=== PATIENT | female | born 1995 | race Hispanic/Latino ===

== ENCOUNTER 2020-07-15 21:58 | Emergency (ER) | payer OTHER ==
[2020-07-15] MEDS ORDERED: ONDANSETRON 4 MG/2 ML VIAL ONE (22:49)
[2020-07-15] MEDS ORDERED: FAMOTIDINE 20 MG/2 ML VIAL IV ONE (22:49)
[2020-07-15] MEDS ORDERED: NA CHLORIDE 0.9% 1,000 ML ONE (22:49)
[2020-07-15 23:05] LABS: Urine Blood NEGATIVE (NEG); Urine Glucose NEGATIVE (NEG); Urine Protein NEGATIVE (NEG); Urine pH 8.5 (5.0-7.0)
[2020-07-15 23:10] LABS: Absolute Lymphocytes (CBC) 1.3 K/uL (0.7-4.9); Hematocrit 38.8 % (36.0-45.0); Lymphocytes % 17.5 % (15.3-44.8); MPV 9.9 fL (7.6-11.3); RBC Red Blood Cell Count 4.38 M/uL (3.86-4.86)
[2020-07-15 23:28] LABS: ALT/SGPT 19 U/L (12-78); AST/SGOT 14 U/L (15-37); Albumin 4.1 g/dL (3.4-5.0); Alkaline Phosphatase 66 U/L (45-117); BUN Blood Urea Nitrogen 8 mg/dL (7-18); Bicarbonate 29 mmol/L (21-32); Bilirubin Direct 0.1 mg/dL (0-0.2); Bilirubin Total 0.5 mg/dL (0.2-1.0); Glucose Level 109 mg/dL (74-106); Lipase 55 U/L (73-393); Potassium 3.7 mmol/L (3.5-5.1); Sodium Level 141 mmol/L (136-145)
--- NOTE | 2020-07-16 00:10 | ER ---
Nurse's Notes [facility] Name: Fernando Castillo Age: 24 yrs Sex: Female : 1995 Arrival Date: 07/15/2020 Time: 21:59 Bed 20 Private MD: Diagnosis: Nausea;Diarrhea;Dehydration Presentation: 07/15 22:14 Chief complaint: Patient states: today at approx 1500 she started having a headache bb with nausea, chills, and diarrhea x 4, denies vomiting and abdominal pain. Coronavirus screen: chills, headache, nausea, Client presents with at least one sign or symptom that may indicate coronavirus-19. Standard/surgical mask placed on the client. Ebola Screen: No symptoms or risks identified at this time. Initial Sepsis Screen: Does the patient meet any 2 criteria? No. Patient's initial sepsis screen is negative. Does the patient have a suspected source of infection? No. Patient's initial sepsis screen is negative. Risk Assessment: Do you want to hurt yourself or someone else? Patient reports no desire to harm self or others. Onset of symptoms was July 15, 2020. 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 - Social history:: Smoking status: Patient denies any tobacco usage or history of. Patient uses alcohol, but reports only rare drinking. Patient/guardian denies using street drugs. Screenin:57 Abuse screen: Denies threats or abuse. Denies injuries from another. Nutritional wh screening: No deficits noted. Tuberculosis screening: No symptoms or risk factors identified. Fall Risk None identified. Assessment: 22:30 General: Appears in no apparent distress. Behavior is calm, cooperative, appropriate wh for age. Pain: Complains of pain in headache. Neuro: Level of Consciousness is awake, alert, obeys commands, Oriented to person, place, time, situation, Appropriate for age. Cardiovascular: Heart tones S1 S2. Respiratory: Airway is patent Respiratory effort is even, unlabored, Respiratory pattern is regular, symmetrical. GI: Abdomen is flat, non-distended, Bowel sounds present X 4 quads. Abd is soft and non tender X 4 quads. Reports diarrhea, nausea. : No signs and/or symptoms were reported regarding the genitourinary system. EENT: No signs and/or symptoms were reported regarding the EENT system. Derm: Skin is intact, is healthy with good turgor, Skin is pink, warm \T\ dry. normal. Musculoskeletal: Circulation, motion, and sensation intact. 07/16 00:00 Reassessment: Patient appears in no apparent distress at this time. No changes from previously documented assessment. Patient and/or family updated on plan of care and expected duration. Pain level reassessed. Patient is alert, oriented x 3, equal unlabored respirations, skin warm/dry/pink. 00:15 Reassessment: Pt refusing additional meds and imaging, requesting to go AMA, Notified Provider. Vital Signs: 07/15 22:14 BP 120 / 76; Pulse 71; Resp 14 S; Temp 98.8(O); Pulse Ox 96% on R/A; Weight 55.34 kg bb (R); Height 5 ft. 2 in. (157.48 cm) (R); Pain 3/10; 22:57 BP 106 / 95; Pulse 69; Resp 18; Pulse Ox 97% on R/A; 07/16 00:23 BP 118 / 76; Pulse 67; Resp 18; Pulse Ox 97% on R/A; 07/15 22:14 Body Mass Index 22.31 (55.34 kg, 157.48 cm) ED Course: 07/15 21:59 Patient arrived in ED. cl3 22:09 Oscar Mcmanus MD is Attending Physician. 7 22:17 Triage completed. 22:17 Arm band placed on Patient placed in an exam room, on a stretcher, on pulse oximetry. 22:19 Sherry Christina is Primary Nurse. 22:45 Inserted saline lock: 20 gauge in right antecubital area, using aseptic technique. Blood collected. 22:57 Patient has correct armband on for positive identification. Placed in gown. Bed in low wh position. Call light in reach. Side rails up X 1. Pulse ox on. NIBP on. 07/16 00:22 No provider procedures requiring assistance completed. IV discontinued, intact, bleeding controlled, No redness/swelling at site. Administered Medications: 07/15 22:49 Drug: NS 0.9% 1000 ml Route: IV; Rate: 1000 ml; Site: right antecubital; 23:52 Follow up: Response: No adverse reaction; IV Status: Completed infusion 22:51 Drug: Pepcid 20 mg Route: IVP; Site: right antecubital; 23:51 Follow up: Response: No adverse reaction 22:53 Drug: Zofran (Ondansetron) 4 mg Route: IVP; Site: right antecubital; 23:51 Follow up: Response: No adverse reaction; Nausea is decreased 07/16 00:16 Not Given (Patient Refused): Phenergan 12.5 mg IVP once 00:16 Not Given (Patient Refused): NS 0.9% 1000 ml IV at 1000 ml once Outcome: 00:10 Discharge ordered by mh7 00:23 AMA AMA form signed : Condition: stable 00:23 Instructed on follow up and referral plans. medication usage, POC Demonstrated understanding of follow-up care, medications, Prescriptions given X 2. 00:24 Patient left the ED. Signatures: Cassidy Plaza RN RN Sherry Anders Amina Prado cl3 Oscar Mcmanus MD MD mh7 Corrections: (The following items were deleted from the chart) 07/15 22:57 22:30 Pain: Complains of pain in epigastric area and headache [facility] 22:57 22:30 GI: Abdomen is flat, non-distended, Bowel sounds present X 4 quads. Abd is soft wh and non tender X 4 quads. Reports upper abdominal pain, diarrhea, nausea, wh
--- NOTE | 2020-07-16 00:11 | EDPHYS ---
Physician Documentation [facility] Name: Fernando Castillo Age: 24 yrs Sex: Female : 1995 Arrival Date: 07/15/2020 Time: 21:59 Bed 20 Private MD: ED Physician Oscar Mcmanus HPI: 07/15 22:39 This 24 yrs old Female presents to ER via Ambulatory with complaints of mh7 Nausea/Vomiting/Diarrhea, Headache. 22:39 Onset: The symptoms/episode began/occurred today. Possible causes: bad food exposure, mh7 possibly bad home food. The symptoms are aggravated by nothing. The symptoms are alleviated by nothing. Associated signs and symptoms: Pertinent negatives: abdominal pain, anorexia, belching, constipation, dysuria, fever, flatulence, GI bleeding, hematuria, vaginal discharge, vomiting. Associated signs and symptoms: Pertinent positives: diarrhea, nausea, Headache, Pertinent negatives:. Severity of symptoms: At their worst the symptoms were moderate today, in the emergency department the symptoms are unchanged. 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 - Social history:: Smoking status: Patient denies any tobacco usage or history of. Patient uses alcohol, but reports only rare drinking. Patient/guardian denies using street drugs. ROS: 22:39 Constitutional: Negative for fever, chills, and weight loss, Eyes: Negative for injury, mh7 pain, redness, and discharge, ENT: Negative for injury, pain, and discharge, Neck: Negative for injury, pain, and swelling, Cardiovascular: Negative for chest pain, palpitations, and edema, Respiratory: Negative for shortness of breath, cough, wheezing, and pleuritic chest pain, Back: Negative for injury and pain, : Negative for injury, bleeding, discharge, and swelling, MS/Extremity: Negative for injury and deformity, Skin: Negative for injury, rash, and discoloration, Psych: Negative for depression, anxiety, suicide ideation, homicidal ideation, and hallucinations, Allergy/Immunology: Negative for hives, rash, and allergies, Endocrine: Negative for neck swelling, polydipsia, polyuria, polyphagia, and marked weight changes, Hematologic/Lymphatic: Negative for swollen nodes, abnormal bleeding, and unusual bruising. Exam: 22:39 Constitutional: This is a well developed, well nourished patient who is awake, alert, mh7 and in no acute distress. Head/Face: Normocephalic, atraumatic. Eyes: Pupils equal round and reactive to light, extra-ocular motions intact. Lids and lashes normal. Conjunctiva and sclera are non-icteric and not injected. Cornea within normal limits. Periorbital areas with no swelling, redness, or edema. Neck: Trachea midline, no thyromegaly or masses palpated, and no cervical lymphadenopathy. Supple, full range of motion without nuchal rigidity, or vertebral point tenderness. No Meningismus. Chest/axilla: Normal chest wall appearance and motion. Nontender with no deformity. No lesions are appreciated. Cardiovascular: Regular rate and rhythm with a normal S1 and S2. No gallops, murmurs, or rubs. Normal PMI, no JVD. No pulse deficits. Respiratory: Lungs have equal breath sounds bilaterally, clear to auscultation and percussion. No rales, rhonchi or wheezes noted. No increased work of breathing, no retractions or nasal flaring. Abdomen/GI: Soft, non-tender, with normal bowel sounds. No distension or tympany. No guarding or rebound. No evidence of tenderness throughout. Back: No spinal tenderness. No costovertebral tenderness. Full range of motion. Skin: Warm, dry with normal turgor. Normal color with no rashes, no lesions, and no evidence of cellulitis. MS/ Extremity: Pulses equal, no cyanosis. Neurovascular intact. Full, normal range of motion. Neuro: Awake and alert, GCS 15, oriented to person, place, time, and situation. Cranial nerves II-XII grossly intact. Motor strength 5/5 in all extremities. Sensory grossly intact. Cerebellar exam normal. Normal gait. Psych: Awake, alert, with orientation to person, place and time. Behavior, mood, and affect are within normal limits. Vital Signs: 22:14 BP 120 / 76; Pulse 71; Resp 14 S; Temp 98.8(O); Pulse Ox 96% on R/A; Weight 55.34 kg bb (R); Height 5 ft. 2 in. (157.48 cm) (R); Pain 3/10; 22:57 BP 106 / 95; Pulse 69; Resp 18; Pulse Ox 97% on R/A; wh 07/16 00:23 BP 118 / 76; Pulse 67; Resp 18; Pulse Ox 97% on R/A; 07/15 22:14 Body Mass Index 22.31 (55.34 kg, 157.48 cm) bb MDM: 07/15 22:30 Patient medically screened. [facility] 07/16 00:07 Differential diagnosis: gastritis, pancreatitis, viral gastroenteritis, mh7 gastroenteritis, dehydration. Data reviewed: vital signs, nurses notes, lab test result(s), CBC, electrolytes, urinalysis, UPT:. Data interpreted: Pulse oximetry: on room air is 97 %. Interpretation: normal. 00:09 Counseling: I had a detailed discussion with the patient and/or guardian regarding: the [facility] historical points, exam findings, and any diagnostic results supporting the discharge/admit diagnosis, lab results. Response to treatment: the patient's symptoms have markedly improved after treatment. Refusal of service: The patient/guardian displays adequate decision making capability and despite a detailed discussion of alternatives, benefits, risks, and consequences refuses: CT Scan, Medications. 01:24 ED course: NAD, VSS, no focal neurological deficits. No diarrhea or headache, but still 7 has some nausea. Patient declined further care and evaluation and decided to leave against medical advice. Explained the possibility of permanent disability and/or if serious medical or surgical condition is present and goes untreated. She verbalized that she understood this information as presented. She has a normal mental status and neurological exam. She knows she can return to the ED if worsening of symptoms or other concerns.. 07/15 22:32 Order name: Basic Metabolic Panel [facility] 07/15 22:32 Order name: CBC with Diff [facility] 07/15 22:32 Order name: Hepatic Function [facility] 07/15 22:32 Order name: Lipase [facility] 07/15 22:56 Order name: Urine Dipstick--Ancillary (enter results) [facility] 07/15 22:56 Order name: Urine --Ancillary (enter results) [facility] 07/15 23:05 Order name: Urine --Ancillary; Complete Time: 23:32 [facility] 07/15 23:05 Order name: Urine Dipstick-Ancillary; Complete Time: 23:32 [facility] 07/15 23:12 Order name: CBC with Automated Diff; Complete Time: 23:32 [facility] 07/15 23:28 Order name: Basic Metabolic Panel; Complete Time: 23:32 [facility] 07/15 23:28 Order name: Liver (Hepatic) Function; Complete Time: 23:32 [facility] 07/15 23:28 Order name: Lipase; Complete Time: 23:32 [facility] 07/15 23:50 Order name: CT Abd/Pelvis - IV Contrast Only [facility] 07/15 22:32 Order name: IV Saline Lock; Complete Time: 22:54 [facility] 07/15 22:32 Order name: Labs collected and sent; Complete Time: 22:54 [facility] 07/15 22:32 Order name: Urine Dipstick-Ancillary (obtain specimen); Complete Time: 22:54 [facility] 07/15 22:32 Order name: Urine Test (obtain specimen); Complete Time: 22:54 [facility] Administered Medications: 07/15 22:49 Drug: NS 0.9% 1000 ml Route: IV; Rate: 1000 ml; Site: right antecubital; 23:52 Follow up: Response: No adverse reaction; IV Status: Completed infusion 22:51 Drug: Pepcid 20 mg Route: IVP; Site: right antecubital; 23:51 Follow up: Response: No adverse reaction 22:53 Drug: Zofran (Ondansetron) 4 mg Route: IVP; Site: right antecubital; 23:51 Follow up: Response: No adverse reaction; Nausea is decreased 07/16 00:16 Not Given (Patient Refused): Phenergan 12.5 mg IVP once 00:16 Not Given (Patient Refused): NS 0.9% 1000 ml IV at 1000 ml once Disposition: 07/16/20 00:13 Patient has left against medical advice. Impression: Nausea, Diarrhea, Dehydration. - Patients states they are going to Home. - Condition is Stable. - Discharge Instructions: Diarrhea, Adult, Jlsv-[id number], Dehydration, Adult, [id number]-[id number], Nausea, Adult, Owbu-pu-Ezcq. - Prescriptions for Zofran ODT 4 mg Oral tablet,disintegrating - place 1 tablet by TRANSLINGUAL route every 8 hours As needed; 6 tablet. Pepcid 20 mg Oral Tablet - take 1 tablet by ORAL route every 12 hours for 5 days; 10 tablet. Follow up: Private Physician; When: 1 - 2 days; Reason: Worsening of condition, Recheck today's complaints, Continuance of care, Re-evaluation by your physician. - Problem is new. - Symptoms have improved. Signatures: Dispatcher [employer] Cassidy Youssef RN RN bb Habalo, Winsy wh Holmes, Maurice, MD MD 7 Corrections: (The following items were deleted from the chart) 00:11 00:10 07/16/2020 00:10 Discharged to Home. Impression: Nausea; Diarrhea. Condition is mh7 Stable. Forms are Medication Reconciliation Form, Thank You Letter, Antibiotic Education, Prescription Opioid Use. Follow up: Private Physician; When: 1 - 2 days; Reason: Worsening of condition, Recheck today's complaints, Continuance of care, Re-evaluation by your physician. Problem is new. Symptoms have improved. [facility] 00:12 00:11 07/16/2020 00:10 Discharged to Home. Impression: Nausea; Diarrhea; Dehydration. 7 Condition is Stable. Forms are Medication Reconciliation Form, Thank You Letter, Antibiotic Education, Prescription Opioid Use. Follow up: Private Physician; When: 1 - 2 days; Reason: Worsening of condition, Recheck today's complaints, Continuance of care, Re-evaluation by your physician. Problem is new. Symptoms have improved. [facility] 00:24 00:13 07/16/2020 00:13 Patients has left against medical advice. Impression: Nausea; wh Diarrhea; Dehydration. Patient states they are going to Home. Condition is Stable. Follow up: Private Physician; When: 1 - 2 days; Reason: Worsening of condition, Recheck today's complaints, Continuance of care, Re-evaluation by your physician. Problem is new. Symptoms have improved. 7
[2020-07-16] MEDS ORDERED: PROMETHAZINE INJ 25 MG/ML AMP ONE (00:15)
[2020-07-16] MEDS ORDERED: NA CHLORIDE 0.9% 0 ML ONE (00:15)
[2020-07-16] MEDS ORDERED: ONDANSETRON 4 MG (ODT) TAB ONE (00:24)
[2020-07-16 00:38] VITALS: TEMP 98.8
[2020-07-16 00:40] VITALS: O2SAT 97
[2020-07-16 00:41] VITALS: BP 118/76
== END 2020-07-16 00:24 | disposition left against medical advice (07) ==
LOC: ER 21:58
DX: E86.0 Dehydration (principal); R19.7 Diarrhea, unspecified
CPT/HCPCS: 96361; 85025; 80048; 36415; 81025; 80076; 81003; 83690; 96375; 96374; 99284; J7030; J2405; J2550

== ENCOUNTER 2021-05-09 10:36 | Emergency (ER) | payer OTHER ==
[2021-05-09 11:18] LABS: Urine Blood Trace-lysed (Negative); Urine Glucose Negative (Negative); Urine Protein Negative (Negative); Urine Specific Gravity 1.015 (1.005-1.030)
[2021-05-09] MEDS ORDERED: CEFTRIAXONE/SWI 1gm 1 GM/10 ML SYR ONE (11:29)
[2021-05-09] MEDS ORDERED: NA CHLORIDE 0.9% 1,000 ML ONE (11:29)
[2021-05-09] MEDS ORDERED: MORPHINE 4 MG/ML SYR ONE (11:29)
[2021-05-09] MEDS ORDERED: ONDANSETRON 4 MG/2 ML VIAL ONE (11:29)
[2021-05-09 11:49] LABS: Absolute Lymphocytes (CBC) 1.1 K/uL (0.7-4.9); Basophils % 1.1 % (0-1.3); Hematocrit 41.5 % (36.0-45.0); Lymphocytes % 16.5 % (15.3-44.8); MPV 8.8 fL (7.6-11.3); RBC Red Blood Cell Count 4.76 M/uL (3.86-4.86)
[2021-05-09 12:09] LABS: Albumin 4.7 g/dL (3.4-5.0); Bilirubin Direct 0.2 mg/dL (0-0.2); Bilirubin Total 0.7 mg/dL (0.2-1.0); Potassium 3.6 mmol/L (3.5-5.1); Protein, Total 8.9 g/dL (6.4-8.2)
--- NOTE | 2021-05-09 12:16 | ER ---
Nurse's Notes [facility] Name: Fernando Castillo Age: 25 yrs Sex: Female : 1995 Arrival Date: 05/09/2021 Time: 10:39 Bed 19 Private MD: Diagnosis: Acute cystitis Presentation: 05/09 10:45 Chief complaint: Patient states: Diagnosed with UTI Friday morning via tele doc, was ca1 prescribed Bactrim. Reports N/V since, unable to tolerate fluids, meds. Went to the urgent care today, UA tested and still evident of UTI with +Ketones. Coronavirus screen: Client denies travel out of the [place] in the last 14 days. nausea, vomiting. Client presents with at least one sign or symptom that may indicate coronavirus-19. Standard/surgical mask placed on the client. Provider contacted for isolation considerations. Ebola Screen: Patient negative for fever greater than or equal to 101.5 degrees Fahrenheit, and additional compatible Ebola Virus Disease symptoms Patient denies exposure to infectious person. Patient denies travel to an Ebola-affected area in the 21 days before illness onset. No symptoms or risks identified at this time. Initial Sepsis Screen: Does the patient meet any 2 criteria? No. Patient's initial sepsis screen is negative. Does the patient have a suspected source of infection? No. Patient's initial sepsis screen is negative. Risk Assessment: Do you want to hurt yourself or someone else? Patient reports no desire to harm self or others. Onset of symptoms was May 06, 2021. 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 Flu vaccine is not up to date. - Social history:: Smoking status: Patient denies any tobacco usage or history of. Patient/guardian denies using alcohol, street drugs, The patient lives with family. - Family history:: not pertinent. - Hospitalizations: : No recent hospitalization is reported. Screenin:26 Abuse screen: Denies threats or abuse. Denies injuries from another. Nutritional ph screening: No deficits noted. Tuberculosis screening: No symptoms or risk factors identified. Fall Risk None identified. Assessment: 11:25 General: Appears in no apparent distress. Behavior is calm, cooperative, appropriate ld1 for age. Pain: Complains of pain in pelvic Quality of pain is described as aching. Neuro: No deficits noted. Cardiovascular: No deficits noted. Respiratory: No deficits noted. GI: Abdomen is flat, Bowel sounds present X 4 quads. Abd is soft and non tender X 4 quads. Reports nausea, vomiting. : Reports burning with urination. 12:25 Reassessment: No changes from previously documented assessment. Patient and/or family ld1 updated on plan of care and expected duration. Pain level reassessed. Patient is alert, oriented x 3, equal unlabored respirations, skin warm/dry/pink. Vital Signs: 10:45 BP 120 / 82; Pulse 65; Resp 18 S; Temp 97.1(TE); Pulse Ox 100% on R/A; Weight 52.62 kg; ca1 Height 5 ft. 1 in. (154.94 cm) (R); Pain 0/10; 12:41 BP 119 / 74; Pulse 69; Resp 15; Pulse Ox 100% ; ld1 10:45 Body Mass Index 21.92 (52.62 kg, 154.94 cm) ca1 ED Course: 10:39 Patient arrived in ED. mr 10:48 Triage completed. ca1 10:48 Arm band placed on right wrist. ca1 10:51 Zeb Acosta PA is PHCP. [facility] 10:51 Cash Woods MD is Attending Physician. [facility] 11:00 Jana Prado, ZHANG is Primary Nurse. ll1 11:20 Patient has correct armband on for positive identification. Bed in low position. Call ld1 light in reach. Side rails up X2. Pulse ox on. NIBP on. 11:27 Initial lab(s) drawn, by me, sent to lab. Inserted saline lock: 22 gauge in left ph antecubital area, using aseptic technique. Blood collected. 12:43 No provider procedures requiring assistance completed. IV discontinued, intact, ld1 bleeding controlled, No redness/swelling at site. Pressure dressing applied. Administered Medications: 11:27 Drug: NS 0.9% 1000 ml Route: IV; Rate: 1 bolus; Site: left antecubital; ph 12:41 Follow up: Response: No adverse reaction; IV Status: Completed infusion; IV Intake: ld1 1000ml 11:27 Drug: Rocephin (cefTRIAXone) 1 grams Route: IV; Rate: calculated rate; Site: left ph antecubital; 12:41 Follow up: Response: No adverse reaction; IV Status: Completed infusion; IV Intake: [id number] 11:27 Drug: Zofran (Ondansetron) 4 mg Route: IVP; Site: left antecubital; ph 12:40 Follow up: Response: No adverse reaction; RASS: Alert and Calm (0) ld1 12:40 Not Given (Patient Refused): morphine 4 mg IVP once; RASS on ADMIN: Combtv4, Very ld1 Agttd3, Agttd2, Rstlss1, AlertClm0, Drwsy-1, Lt Sdtn-2, Mod Sdtn-3, Dp Sdtn-4, UnArsble-5 Intake: 12:41 IV: 1000ml; Total: 1000ml. ld1 12:41 IV: 10ml; Total: 1010ml. ld1 Outcome: 12:15 Discharge ordered by . ma2 12:44 Discharged to home ambulatory. ld1 12:44 Condition: stable 12:44 Discharge instructions given to patient, Instructed on discharge instructions, follow up and referral plans. medication usage, Demonstrated understanding of instructions, follow-up care, medications, Prescriptions given X 2. 12:45 Patient left the ED. ld1 Signatures: Zeb Acosta PA PA jmm Rivera, Mary mr iDan Pool RN RN Cash Woods MD MD ma2 Acob, Cheryl, RN RN ca1 Jana Prado RN RN 1 Ilene Nielsen RN RN ld1 Corrections: (The following items were deleted from the chart) 10:49 10:48 PSHx: None; ca1 ca1
--- NOTE | 2021-05-09 12:16 | EDPHYS ---
Physician Documentation [facility] Name: Fernando Castillo Age: 25 yrs Sex: Female : 1995 Arrival Date: 05/09/2021 Time: 10:39 Bed 19 Private MD: ED Physician Cash Woods HPI: 05/09 11:17 This 25 yrs old Female presents to ER via Ambulatory with complaints of ma2 Urinary Problem, Vomiting. 11:17 The patient presents to the emergency department with nausea, vomiting. Onset: The ma2 symptoms/episode began/occurred gradually, 2 day(s) ago. Associated signs and symptoms: Pertinent negatives: anorexia, diarrhea, flatulence, GI bleeding. Severity of symptoms: At their worst the symptoms were mild in the emergency department the symptoms are unchanged. The patient has not experienced similar symptoms in the past. 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 Flu vaccine is not up to date. - Social history:: Smoking status: Patient denies any tobacco usage or history of. Patient/guardian denies using alcohol, street drugs, The patient lives with family. - Family history:: not pertinent. - Hospitalizations: : No recent hospitalization is reported. ROS: 11:17 Constitutional: Negative for fever, chills, and weight loss. ma2 11:17 All other systems are negative. Exam: 11:17 Constitutional: This is a well developed, well nourished patient who is awake, alert, ma2 and in no acute distress. Neck: Trachea midline, no thyromegaly or masses palpated, and no cervical lymphadenopathy. Supple, full range of motion without nuchal rigidity, or vertebral point tenderness. No Meningismus. Chest/axilla: Normal chest wall appearance and motion. Nontender with no deformity. No lesions are appreciated. Cardiovascular: Regular rate and rhythm with a normal S1 and S2. No gallops, murmurs, or rubs. Normal PMI, no JVD. No pulse deficits. Respiratory: Lungs have equal breath sounds bilaterally, clear to auscultation and percussion. No rales, rhonchi or wheezes noted. No increased work of breathing, no retractions or nasal flaring. Abdomen/GI: Soft, non-tender, with normal bowel sounds. No distension or tympany. No guarding or rebound. No evidence of tenderness throughout. Back: No spinal tenderness. No costovertebral tenderness. Full range of motion. Skin: Warm, dry with normal turgor. Normal color with no rashes, no lesions, and no evidence of cellulitis. MS/ Extremity: Pulses equal, no cyanosis. Neurovascular intact. Full, normal range of motion. Neuro: Awake and alert, GCS 15, oriented to person, place, time, and situation. Cranial nerves II-XII grossly intact. Motor strength 5/5 in all extremities. Sensory grossly intact. Cerebellar exam normal. Normal gait. Vital Signs: 10:45 BP 120 / 82; Pulse 65; Resp 18 S; Temp 97.1(TE); Pulse Ox 100% on R/A; Weight 52.62 kg; ca1 Height 5 ft. 1 in. (154.94 cm) (R); Pain 0/10; 12:41 BP 119 / 74; Pulse 69; Resp 15; Pulse Ox 100% ; ld1 10:45 Body Mass Index 21.92 (52.62 kg, 154.94 cm) ca1 MDM: 11:17 Differential diagnosis: Nonspecific abd pain, gastritis, viral gastroenteritis, ma2 gastroenteritis. Data reviewed: vital signs, nurses notes. Counseling: I had a detailed discussion with the patient and/or guardian regarding: the historical points, exam findings, and any diagnostic results supporting the discharge/admit diagnosis, the presence of at least one elevated blood pressure reading (>120/80) during this emergency department visit, the need for outpatient follow up. Response to treatment: the patient's symptoms have markedly improved after treatment. 12:15 Patient medically screened. nv05/09 11:00 Order name: Basic Metabolic Panel; Complete Time: 12:14 nv05/09 11:00 Order name: CBC with Diff; Complete Time: 12:08 [facility] 05/09 11:00 Order name: Hepatic Function; Complete Time: 12:14 [facility] 05/09 11:00 Order name: Lipase; Complete Time: 12:14 [facility] 05/09 11:17 Order name: Urine Dipstick-Ancillary; Complete Time: 12:08 [facility] 05/09 11:00 Order name: IV Saline Lock; Complete Time: [facility] 05/09 11:00 Order name: Labs collected and sent; Complete Time: [facility] 05/09 11:00 Order name: Urine Dipstick-Ancillary (obtain specimen); Complete Time: [facility] 05/09 11:00 Order name: Urine Test (obtain specimen); Complete Time: : [facility] Administered Medications: Drug: NS 0.9% 1000 ml Route: IV; Rate: 1 bolus; Site: left antecubital; ph 12:41 Follow up: Response: No adverse reaction; IV Status: Completed infusion; IV Intake: ld1 1000ml 11: Drug: Rocephin (cefTRIAXone) 1 grams Route: IV; Rate: calculated rate; Site: left ph antecubital; 12:41 Follow up: Response: No adverse reaction; IV Status: Completed infusion; IV Intake: [id number] 11: Drug: Zofran (Ondansetron) 4 mg Route: IVP; Site: left antecubital; ph 12:40 Follow up: Response: No adverse reaction; RASS: Alert and Calm (0) ld1 12:40 Not Given (Patient Refused): morphine 4 mg IVP once; RASS on ADMIN: Combtv4, Very ld1 Agttd3, Agttd2, Rstlss1, AlertClm0, Drwsy-1, Lt Sdtn-2, Mod Sdtn-3, Dp Sdtn-4, UnArsble-5 Disposition Summary: 05/09/21 12:15 Discharge Ordered Location: Home ma2 Condition: Stable ma2 Diagnosis - Acute cystitis ma2 Followup: ma2 - With: Private Physician - When: Tomorrow - Reason: If symptoms return, Continuance of care Discharge Instructions: - Discharge Summary Sheet ma2 - Urinary Tract Infection, Adult, [id number] ma2 Forms: - Medication Reconciliation Form ma2 - Thank You Letter ma2 - Antibiotic Education ma2 - Prescription Opioid Use ma2 - School release form ll1 - Work release form ll1 Prescriptions: - Zofran 4 mg Oral Tablet - take 1 tablet by ORAL route every 12 hours As needed; 20 tablet; Refills: 0, ma2 Product Selection Permitted - cefpodoxime 200 mg Oral Tablet - take 1 tablet by ORAL route every 12 hours with food; 14 tablet; Refills: 0, ma2 Product Selection Permitted Signatures: Dispatcher [employer] Dian Lockhart RN RN ph Cash Woods MD MD ma2 Tawanna Waters RN RN ca1 Ilene Nielsen RN ld1 Corrections: (The following items were deleted from the chart) 10:49 10:48 PSHx: None; ca1 ca1
[2021-05-09 13:17] VITALS: TEMP 97.1; O2SAT 100
[2021-05-09 13:19] VITALS: BP 119/74
== END 2021-05-09 12:45 | disposition home or self-care (01) ==
LOC: ER 10:36
DX: N30.00 Acute cystitis without hematuria (principal)
CPT/HCPCS: 96365; 85025; 80048; 36415; 80076; 81003; 83690; 96375; 99284; J0696; J7030; J2405